=== PATIENT | female | born 1970 | race Caucasian/White ===

== ENCOUNTER → 2020-12-31 | Outpatient (CLI) | payer OTHER ==
[~2020-12-31] MED LIST: ADDERALL 30 MG30 MG PO; ALLEGRA60 MG PO; MINOCIN50 MG PO; MUCINEX600 MG PO; VITAMIN D1000 UNI1 PO
== END ==
LOC: CAT 12:03
PROVIDERS: ATTEND Family Medicine
DX: Z13.6 Encounter for screening for cardiovascular disorders (principal); I25.10 Atherosclerotic heart disease of native coronary artery without angina pectoris; E78.00 Pure hypercholesterolemia, unspecified

== ENCOUNTER → 2021-09-16 | Outpatient (CLI) | payer OTHER | END | disposition home or self-care (01) | LOC: CAT 09-10 13:54 | PROVIDERS: ATTEND Family Medicine | DX: N83.201 Unspecified ovarian cyst, right side (principal) ==